=== PATIENT | female | born 1990 | race Caucasian/White ===

== ENCOUNTER 2018-11-29 14:30 | Emergency (ER) | payer SELFPAY ==
--- NOTE | 2018-11-29 15:53 | RAD REPORT ---
EXAM DESCRIPTION: Lyle Single View11/29/2018 3:40 pm CLINICAL HISTORY: sob COMPARISON: none FINDINGS: The lungs appear clear of acute infiltrate. The heart is normal size IMPRESSION: No acute abnormalities displayed
[2018-11-29 15:56] LABS: Absolute Lymphocytes (CBC) 2.7 K/uL (0.7-4.9); Absolute Monocytes 0.5 K/uL (0.1-1.3); Absolute Neutrophil 4.2 K/uL (1.8-8.0); Basophils % 0.7 % (0-1.3); Eosinophils % 3.4 % (0-4.4); Hematocrit 34.8 % (36.0-45.0); Lymphocytes % 35.1 % (15.3-44.8); MPV 9.6 fL (7.6-11.3); Monocytes % 6.5 % (3.3-12.3); RBC Red Blood Cell Count 4.43 M/uL (3.86-4.86)
[2018-11-29 15:58] LABS: Protime INR 1.14
[2018-11-29 16:12] LABS: ALT/SGPT 17 U/L (12-78); AST/SGOT 16 U/L (15-37); Albumin 3.8 g/dL (3.4-5.0); Alkaline Phosphatase 79 U/L (45-117); BUN Blood Urea Nitrogen 11 mg/dL (7-18); Bicarbonate 21 mmol/L (21-32); Bilirubin Direct < 0.1 mg/dL (0-0.2); Bilirubin Total 0.2 mg/dL (0.2-1.0); Glucose Level 87 mg/dL (74-106); Lipase 91 U/L (73-393); Magnesium 2.3 mg/dL (1.8-2.4); NT PRO-BNP 9 pg/mL (<125); Potassium 3.3 mmol/L (3.5-5.1); Sodium Level 140 mmol/L (136-145); Troponin (Emerg Dept Use Only) < 0.02 ng/mL (0.0-0.045)
[2018-11-29] MEDS ORDERED: NA CHLORIDE 0.9% 1,000 ML ONE ×2 (16:16→17:07)
--- NOTE | 2018-11-29 18:52 | ER ---
Nurse's Notes [facility] Name: Mirna Chan Age: 28 yrs Sex: Female : 1990 Arrival Date: 11/29/2018 Time: 14:34 Bed 8 Private MD: Out, [facility] Diagnosis: Dyspnea, unspecified Presentation: 11/29 14:45 Presenting complaint: Patient states: I feel sick since the end of September, I feel ch SOB, I feel weak, I feel like I cannot catch my breath. Two weeks ago, I got ulcers in my mouth, generalized body aches. I have a hx of anemia. Transition of care: patient was not received from another setting of care. Onset of symptoms was September 2018. Risk Assessment: Do you want to hurt yourself or someone else? Patient reports no desire to harm self or others. Initial Sepsis Screen: Does the patient meet any 2 criteria? No. Patient's initial sepsis screen is negative. Does the patient have a suspected source of infection? No. Patient's initial sepsis screen is negative. Care prior to arrival: None. 14:45 Method Of Arrival: Ambulatory 14:45 Acuity: RYAN 3 Triage Assessment: 14:48 General: Appears in no apparent distress. comfortable, Behavior is calm, cooperative, ch appropriate for age. General: my chest hurts. . Pain: Complains of pain in generalized Pain currently is 8 out of 10 on a pain scale. Respiratory: Reports shortness of breath at rest Onset: The symptoms/episode began/occurred gradually. 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 - Social history:: Smoking status: Patient uses tobacco products, denies chronic smoking, but will smoke occasionally, Patient/guardian denies using alcohol, street drugs. - Ebola Screening: : Patient negative for fever greater than or equal to 101.5 degrees Fahrenheit, and additional compatible Ebola Virus Disease symptoms Patient denies exposure to infectious person Patient denies travel to an Ebola-affected area in the 21 days before illness onset No symptoms or risks identified at this time. Screenin:30 Abuse screen: Denies threats or abuse. Denies injuries from another. Nutritional jl7 screening: No deficits noted. Tuberculosis screening: No symptoms or risk factors identified. Fall Risk IV access (20 points). Total Bae Fall Scale indicates No Risk (0-24 pts). Assessment: 15:30 General: Appears in no apparent distress. uncomfortable, Behavior is cooperative, jl7 anxious. Pain: Complains of pain in generalized pain Pain currently is 8 out of 10 on a pain scale. Is continuous. Neuro: Level of Consciousness is awake, alert, obeys commands, Oriented to person, place, time, situation. Cardiovascular: Rhythm is sinus tachycardia. Respiratory: Airway is patent Respiratory effort is even, unlabored, Respiratory pattern is symmetrical, tachypnea Breath sounds are clear bilaterally. GI: No signs and/or symptoms were reported involving the gastrointestinal system. : No signs and/or symptoms were reported regarding the genitourinary system. EENT: No signs and/or symptoms were reported regarding the EENT system. Derm: Skin is pink, warm \T\ dry. Musculoskeletal: No signs and/or symptoms reported regarding the musculoskeletal system. 16:30 Reassessment: No changes from previously documented assessment. Patient and/or family jl7 updated on plan of care and expected duration. Pain level reassessed. Patient is alert, oriented x 3, equal unlabored respirations, skin warm/dry/pink. 17:30 Reassessment: Patient appears in no apparent distress at this time. Patient and/or jl7 family updated on plan of care and expected duration. Pain level reassessed. Patient is alert, oriented x 3, equal unlabored respirations, skin warm/dry/pink. 18:30 Reassessment: Patient appears in no apparent distress at this time. Patient and/or jl7 family updated on plan of care and expected duration. Pain level reassessed. Patient is alert, oriented x 3, equal unlabored respirations, skin warm/dry/pink. Vital Signs: 14:48 BP 134 / 88; Pulse 132; Resp 26; Temp 99.8; Pulse Ox 100% on R/A; Weight 74.84 kg; ch Height 5 ft. 6 in. (167.64 cm); Pain 8/10; 15:55 BP 136 / 67; Pulse 112; Resp 25 S; Pulse Ox 99% on R/A; jl7 16:08 BP 117 / 90; Pulse 104; Resp 11; Pulse Ox 100% on 1 lpm NC; tw2 18:39 BP 110 / 63; Pulse 103; Resp 21 S; Pulse Ox 100% on R/A; jl7 14:48 Body Mass Index 26.63 (74.84 kg, 167.64 cm) 16:08 pt c/o sob, provider notified, will continue to monitor o2 sat at 100% tw2 ED Course: 14:34 Patient arrived in ED. sb2 14:34 Out, of Town is Private Physician. sb2 14:46 Triage completed. 14:48 Arm band placed on left wrist. Patient placed in an exam room, on a stretcher. 15:05 Abran Bowden PA is PHCP. [facility] 15:05 Nain Connelly MD is Attending Physician. [facility] 15:14 Lindsey Stern RN is Primary Nurse. jl7 15:21 EKG done, by manufacturing technician. reviewed by Abran SANDERS. 3 15:30 Patient has correct armband on for positive identification. Placed in gown. Bed in low jl7 position. Call light in reach. Side rails up X 1. cardiac monitor on. Pulse ox on. NIBP on. Warm blanket given. 15:30 Initial lab(s) drawn, by me, sent to lab. Inserted saline lock: 22 gauge in right jl7 antecubital area, using aseptic technique. Blood collected. 15:36 XRAY Chest (1 view) In Process Unspecified. EDMS 15:53 Basic Metabolic Panel Sent. jl7 17:10 Urine collected: clean catch specimen, clear. dh3 18:11 Repeat lab(s) drawn. by me, sent to lab. 3 19:05 No provider procedures requiring assistance completed. IV discontinued, intact, jl7 bleeding controlled, No redness/swelling at site. Pressure dressing applied. Administered Medications: 16:10 Drug: NS 0.9% 1000 ml Route: IV; Rate: 1 bolus; Site: right antecubital; tw2 18:15 Follow up: IV Status: Completed infusion jl7 Outcome: 18:51 Discharge ordered by . [facility] 19:05 Discharged to home ambulatory. jl 19:05 Condition: stable 19:05 Discharge instructions given to patient, Instructed on discharge instructions, follow up and referral plans. Demonstrated understanding of instructions, follow-up care. 19:06 Patient left the ED. jl7 Signatures: Dispatcher [employer] EDChelsea gM, RN RN Abran Bowden PA PA jmm Wise, Tara, RN RN tw2 Lindsey Stern RN RN jl7 Zaida Ortiz 3 Tonia Lockett 2 Nohemi Marsh 3
--- NOTE | 2018-11-29 18:53 | EDPHYS ---
Physician Documentation [facility] Name: Mirna Chan Age: 28 yrs Sex: Female : 1990 Arrival Date: 11/29/2018 Time: 14:34 Bed 8 Private MD: Out, [facility] ED Physician Nain Connelly HPI: 11/29 15:19 This 28 yrs old Female presents to ER via Ambulatory with complaints of Shortness Of jmm Breath, Weakness. 15:19 The patient has shortness of breath at rest. Onset: The symptoms/episode began/occurred jmm gradually, 1 month(s) ago. Duration: The symptoms are continuous, and are steadily getting worse. The patient's shortness of breath is aggravated by nothing, is alleviated by nothing. Associated signs and symptoms: Pertinent positives:. This is a 28 year old female with a history of catherine thyroiditis, anemia that presents to the ED with shortness of breath progessively worsening over the past month. patient complains of body aches, ulcers to her mouth. Patient does not currently take medication for thyroid. . 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 - Social history:: Smoking status: Patient uses tobacco products, denies chronic smoking, but will smoke occasionally, Patient/guardian denies using alcohol, street drugs. - Ebola Screening: : Patient negative for fever greater than or equal to 101.5 degrees Fahrenheit, and additional compatible Ebola Virus Disease symptoms Patient denies exposure to infectious person Patient denies travel to an Ebola-affected area in the 21 days before illness onset No symptoms or risks identified at this time. ROS: 15:19 Neck: Negative for injury, pain, and swelling, Cardiovascular: Negative for chest pain, jmm palpitations, and edema. 15:19 Abdomen/GI: Negative for abdominal pain, nausea, vomiting, diarrhea, and constipation, Neuro: Negative for headache, weakness, numbness, tingling, and seizure. 15:19 Constitutional: Positive for body aches. 15:19 ENT: Positive for 15:19 Respiratory: Positive for shortness of breath. 15:19 MS/extremity: Positive for pain. 15:19 All other systems are negative. Exam: 15:19 Constitutional: This is a well developed, well nourished patient who is awake, alert, jmm and in no acute distress. Head/Face: atraumatic. Eyes: EOMI, no conjunctival erythema appreciated ENT: Moist Mucus Membranes Neck: Trachea midline, Supple Chest/axilla: Normal chest wall appearance and motion. Cardiovascular: Regular rate and rhythm. No edema appreciated 15:19 Respiratory: mild respiratory distress is noted, Respirations: normal, Breath sounds: are clear throughout. 15:19 Abdomen/GI: Inspection: abdomen appears normal, Bowel sounds: normal, Palpation: abdomen is soft and non-tender, in all quadrants. 15:19 Back: ROM is normal. 15:19 Musculoskeletal/extremity: ROM: intact in all extremities. 15:19 Skin: Appearance: Color: normal in color. 15:19 Neuro: Orientation: is normal, Mentation: is normal, Memory: is normal. 15:19 Psych: Behavior/mood is pleasant, cooperative. Vital Signs: 14:48 BP 134 / 88; Pulse 132; Resp 26; Temp 99.8; Pulse Ox 100% on R/A; Weight 74.84 kg; ch Height 5 ft. 6 in. (167.64 cm); Pain 8/10; 15:55 BP 136 / 67; Pulse 112; Resp 25 S; Pulse Ox 99% on R/A; jl7 16:08 BP 117 / 90; Pulse 104; Resp 11; Pulse Ox 100% on 1 lpm NC; tw2 18:39 BP 110 / 63; Pulse 103; Resp 21 S; Pulse Ox 100% on R/A; jl7 14:48 Body Mass Index 26.63 (74.84 kg, 167.64 cm) 16:08 pt c/o sob, provider notified, will continue to monitor o2 sat at 100% tw2 MDM: 15:16 Patient medically screened. [facility] 18:42 Data reviewed: vital signs, nurses notes, lab test result(s), EKG, radiologic studies, [facility] plain films. ED course: Symptoms have been ongoing for 1 month. I do not suspect an acute process. D-Dimer normal. CXR clear. Normal o2 on RA. Patient advised to follow up with pcp. Given strict return precautions. Patient understood and agrees with the plan of care. . 11/29 15:17 Order name: Basic Metabolic Panel [facility] 11/29 15:17 Order name: CBC with Diff; Complete Time: 16:02 [facility] 11/29 15:17 Order name: LFT's [facility] 11/29 15:17 Order name: Magnesium; Complete Time: 16:19 [facility] 11/29 15:17 Order name: NT PRO-BNP; Complete Time: 16:19 [facility] 11/29 15:17 Order name: Troponin (emerg Dept Use Only); Complete Time: 16:19 [facility] 11/29 15:17 Order name: Lipase; Complete Time: 16:19 [facility] 11/29 15:17 Order name: Type And Screen; Complete Time: 17:24 [facility] 11/29 15:18 Order name: Basic Metabolic Panel; Complete Time: 16:19 [facility] 11/29 15:18 Order name: D-Dimer; Complete Time: 16:02 [facility] 11/29 15:18 Order name: TSH; Complete Time: 16:19 [facility] 11/29 15:18 Order name: T4 Free; Complete Time: 16:19 [facility] 11/29 15:18 Order name: Liver (Hepatic) Function; Complete Time: 16:19 [facility] 11/29 15:17 Order name: XRAY Chest (1 view); Complete Time: 15:57 [facility] 11/29 15:17 Order name: EKG; Complete Time: 15:18 [facility] 11/29 15:17 Order name: Cardiac monitoring; Complete Time: 15:54 [facility] 11/29 15:17 Order name: EKG - Nurse/Tech; Complete Time: 15:54 [facility] 11/29 15:17 Order name: IV Saline Lock; Complete Time: 15:54 [facility] 11/29 15:17 Order name: Labs collected and sent; Complete Time: 15:53 [facility] 11/29 15:17 Order name: O2 Per Protocol; Complete Time: 15:53 [facility] 11/29 15:17 Order name: O2 Sat Monitoring; Complete Time: 15:53 [facility] 11/29 15:18 Order name: Flu; Complete Time: 16:19 [facility] 11/29 15:18 Order name: Procalcitonin; Complete Time: 16:24 [facility] 11/29 15:18 Order name: Lactate; Complete Time: 16:24 [facility] 11/29 15:51 Order name: Protime (+INR); Complete Time: 16:02 [facility] 11/29 16:50 Order name: Lactate: repeat after bolus; Complete Time: 20:33 [facility] 11/29 17:29 Order name: Urine Dipstick--Ancillary (enter results) ag 11/29 17:29 Order name: Urine --Ancillary (enter results) ag 11/29 15:18 Order name: Urine Dipstick-Ancillary (obtain specimen); Complete Time: 17:14 [facility] 11/29 15:18 Order name: Urine Test (obtain specimen); Complete Time: 17:14 [facility] Administered Medications: 16:10 Drug: NS 0.9% 1000 ml Route: IV; Rate: 1 bolus; Site: right antecubital; tw2 18:15 Follow up: IV Status: Completed infusion jl7 Disposition: 11/30 07:16 Co-signature as Attending Physician, Nain Connelly MD I agree with the assessment and kdr plan of care. Disposition: 11/29/18 18:51 Discharged to Home. Impression: Dyspnea, unspecified. - Condition is Stable. - Discharge Instructions: Shortness of Breath. - Medication Reconciliation Form, Thank You Letter, Antibiotic Education, Prescription Opioid Use form. - Follow up: Private Physician; When: 2 - 3 days; Reason: Recheck today's complaints, Continuance of care, Re-evaluation by your physician. Signatures: Dispatcher [employer] [facility] Chelsea Oates, RN RN Nain Connelly MD MD kdr Mickail, Joel, PA PA [facility] Sherrie Ibanez RN RN tw2 Lindsey Stern RN RN jl7 Corrections: (The following items were deleted from the chart) 11/29 15:51 15:18 PROTIME (+INR)+COAG.LAB.BRZ ordered. [facility] 19:06 18:51 11/29/2018 18:51 Discharged to Home. Impression: Dyspnea, unspecified. Condition jl7 is Stable. Forms are Medication Reconciliation Form, Thank You Letter, Antibiotic Education, Prescription Opioid Use. Follow up: Private Physician; When: 2 - 3 days; Reason: Recheck today's complaints, Continuance of care, Re-evaluation by your physician. andreas
[2018-11-29 20:48] LABS: Urine Blood NEGATIVE (NEG); Urine Glucose NEGATIVE (NEG); Urine Protein NEGATIVE (NEG); Urine Specific Gravity 1.015 (1.005-1.030); Urine pH 8.5 (5.0-7.0)
--- NOTE | 2018-11-30 07:48 | EKG ---
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
== END 2018-11-29 19:06 | disposition home or self-care (01) ==
LOC: ER 14:30
DX: R06.00 Dyspnea, unspecified (principal); F41.9 Anxiety disorder, unspecified; Z72.0 Tobacco use
CPT/HCPCS: 36415; 71045; 80048; 80076; 81003; 81025; 83605; 83690; 83735; 83880; 84145; 84439; 84443; 84484; 85025; 85379; 85610; 86850; 86900; 86901; 87804; 93005; 96360; 96361; 99284; J7030